=== PATIENT | female | born 1960 | race Caucasian/White ===

== ENCOUNTER → 2019-12-31 10:12 | Outpatient (CLI) | payer BC, SELFPAY ==
--- NOTE | 2019-12-31 10:12 | MM_ITS ---
PROCEDURE: MM DIG SCREENING MAMM BI W/CAD DIGITAL BREAST TOMOSYNTHESIS INCLUDED Patient Age:59Y CLINICAL INDICATION: screening. Patient taking [place]. Previous benign biopsy right breast. Family history: Noncontributory, unremarkable the COMPARISON: April 2016 prior mammogram studies from [facility] have finally been obtained for comparison TECHNIQUE: Standard CC and MLO images were obtained. R2 CAD reviewed. Bilateral digital breast tomosynthesis included.. Additional nipple profile MLO view bilaterally FINDINGS: Diffuse fatty changes and replacement bilaterally. Low-density breast. Mammography is more optimal in breast of this character. No areas of significant the concern in either breast, no suspicious calcifications. No dominant nor suspicious mass. Unremarkable study. Tomosynthesis views unremarkable bilaterally.. No significant change since previous studies. Bilateral follow-up 1 year recommended. Left breast: No new areas of concern Very small area of density centrally on CC view is stable and not of concern Right breast: Stable with with no significant appearing new findings IMPRESSION: Stable mammogram. No new areas of significant concern Bilateral follow-up 1 year recommended The no significant change since 2016 mammogram from [place] TECHNIQUE: The the BI-RAD Category: 1 Negative FOLLOW-UP: 1YR 1 Year Follow-up the (A letter has been sent to the patient regarding results of the study.) The the the Dictated by: Hugo Davis MD 01/09/2020 10:47 Electronically signed by Hugo Davis MD in [facility] 01/09/2020 10:47
== END ==
PROVIDERS: PCP Internal Medicine; Visit Provider Nurse Practitioner Obstetrics & Gynecology
DX: Z12.31 Encounter for screening mammogram for malignant neoplasm of breast (principal)
CPT/HCPCS: 77063; 77067

== ENCOUNTER 2024-02-22 14:00 | Outpatient (RCR) | payer OTHER, SELFPAY | END 2024-02-26 12:00 | disposition home or self-care (01) | LOC: PT 14:00 | PROVIDERS: Visit Provider Orthopaedic Surgery | DX: M17.12 Unilateral primary osteoarthritis, left knee (principal); Z96.652 Presence of left artificial knee joint | CPT/HCPCS: 97010; 97014; 97110; 97116; 97140; 97163; 97164; 97530; G0283 ==

== ENCOUNTER 2025-04-25 10:37 | Outpatient (RCR) | payer OTHER, SELFPAY ==
--- NOTE | 2025-04-25 12:03 | HMH.PTOPEV ---
PT Outpatient Evaluation Rehab PT Outpatient Evaluation Start: 04/25/25 10:53 Freq: Status: Active Protocol: Document 04/25/25 11:49 PHORNE (Rec: 04/25/25 12:03 PHORNE [id number]) E-signed By Torsten Cortes, PT Outpatient Therapy Subjective History Subjective History This is the initial PT eval for Lise Zambrano, 64 yowf who presents with c/o dizziness x ~ 3-4 mos with insidious onset of symptoms. She reports, it's hard to describe, but I just feel dizzy. She reports increased symptoms with sitting, standing, and walking, but they happen intermittently. She also reports intermittent feelings of nausea associated with her dizziness. She reports PMH of mitral valve prolapse, HTN controlled with meds, Sprengel deformity of L scapula, chronic neck pain, and seasonal allergies. Chief Complaint Other Symptoms Relieved By Rest/Positioning Symptoms Aggravated Sitting,Standing,Physical Activity,Walking By Prior Functional None Limitations Current Functional Housework,Desk Work/Reading,Driving,Standing,Sitting, Limitations Recreation Activity,Walking,Balance Symptom Description Intermittent,Activity Dependent Level of pain today 0 (0-10) Balance Eval Hx of Falls Hx Falls No Nystagmus Nystagmus Presence None Dynamic Gait Index Test Protocol Gait Level Surface Normal Query Text: Instructions: Walk at your normal speed from here to the next john (20'). Grading: John the lowest category that applies. Change in Gait Speed Normal Query Text: Instructions: Begin walking at your normal pace (for 5') , when I tell you go , walk as fast as you can (for 5'). When I tell you slow , walk as slowly as you can ( for 5'). Grading: John the lowest category that applies. Gait with Horizontal Moderate Impairment Head Turns Query Text: Instructions: Begin walking at your normal pace. When I tell you to look right , keep walking straight, but turn you head to the right. Keep looking to the right unit I tell you look left , then keep walking straight and turn your head to the left. Keep your head to the left until I tell you look straight , then keep walking straight, but return you head to the center. Grading: John the lowest category that applies. Gait with Vertical Mild Impairment Head Turns Query Text: Instructions: Begin walking at your normal pace. When I tell you to look up , keep walking staight, but tip your head up. Keep looking up until I tell you to look down , then keep walking straight and tip your head down. Keep your head down until I tell you look straight , then keep walking straight, but return your head to the center. Grading: John the lowest category that applies. Gait and Pivot Turn Mild Impairment Query Text: Instructions: Begin walking at your normal pace. When I tell you turn and stop , turn as quickly as you can to face the opposite direction and stop. Grading: John the lowest category that applies. Step Over Obstacle Normal Query Text: Instructions: Begin walking at your normal speed. When you come to the shoebox, step over it, not around it and keep walking. Grading: John the lowest category that applies. Step Around Normal Obstacles Query Text: Instructions: Begin walking at normal speed. When you come to the first cone (about 6' away) , walk around the right side of it. When you come to the second cone (6' past first cone), walk around it to the left. Grading: John the lowest category that applies. Steps Mild Impairment Query Text: Instructions: Walk up these stairs as you would at home. At the top, turn around and walk down . Grading: John the lowest category that applies. Scoring Dynamic Gait Index 19 Score Miscellaneous Dx PT Eval Objective Objective Occulomotor testing: Head Shake Nystagmus test positive for symptom reproduction. VOR cancellation, Gaze evoked nystagmus, saccades, smooth pursuit all negative for symptom reproduction. [place]-Hallpike and Horizontal Roll testing: all negative for nystagmus or symptoms. Outpatient Therapy Assessment Impairments Problems/ Impaired Walking,Impaired Standing,Impaired Household Impairmments Care,Impaired Recreational Activities,Impaired Work Activities,Impaired Balance,Impaired DGI Score,Impaired Self Care/Self Management Prognosis Rehab Potential Good Comment Signs and symptoms consistent with vestibular dysfunction of unknown etiology. Skilled therapy services are indicated in order to decrease dizziness and improve balance in order to aid improved QOL. Clinical Impression Consistent with Yes Diagnosis PT Patient Goals PT Patient Goals PT Short Term In 2 wks pt will: Patient Goals 1) Decrease dizziness to minimal with standing and walking less than 5 mins 2) Improve DGI to 20/24. 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 3) Be independent with HEP for vestibular retraining. Outpatient Therapy Plan of Care Treatment Plan May Include Therapeutic Exercise Yes Including Home Exercise Program Manual Therapy Yes Techniques Neuromuscular Re- Yes education Therapeutic Yes Activities to Return to Previous Functional/Work Level Gait Training Yes ADL/Self Care Yes Education Eval/Re-Eval Yes Frequency Times per week 2 Duration Number of Weeks 4 Addendums This patient is a No candidate for social or vocational rehab ? Patient/Guardian Yes verbally acknowledges understanding of treatment program and consents to further treatment? Patient/Guardian Yes verbally acknowledges understanding of diagnosis, prognosis and goals for treatment? Eval Complexity PT Charges 00902 - High Complexity Shoulder/Elbow Eval Shoulder Objective Measurements Elbow Objective Measurements PHYSICIAN CERTIFICATION: I certify the specified therapy services for Lise Zambrano are required, authorized, and reviewed every 30 days.
== END 2025-04-25 23:59 | disposition home or self-care (01) ==
LOC: PT 10:37
PROVIDERS: PCP Nurse Practitioner Family; Visit Provider Nurse Practitioner
DX: R42 Dizziness and giddiness (principal)
CPT/HCPCS: 97163